=== PATIENT | female | born 1950 | race Caucasian/White ===

== ENCOUNTER 2016-10-10 05:39 | Inpatient (IN) | payer OTHER ==
[2016-10-10] VITALS (7 sets, daily range): BP systolic 129–178; BP diastolic 66–88
[~2016-10-10] VITALS: Ht 165.1 cm; Wt 68.7 kg
[~2016-10-10 05:39] MED LIST: Actonel PO; Buspar PO; CHANTIX1 MG PO; ENDOCET 5-3251 EACH PO; ESGIC 50-325-41 EACH PO; FIORICET,ESG1 TABLET PO; FISH OIL 1,0001 EAC7 PO; IRON325 M1 PO; Motrin PO; NORCO 7.5/321 TABLET PO; OCUVITE TABLET1 EACH PO; VITAMIN D31000 UNI2 PO
[2016-10-11 04:00] VITALS: BP 142/74
[2016-10-11 07:09] LABS: HEMATOCRIT 38.2 % (36.0-46.0); MCV 92.9 FL (83-99)
[2016-10-11 08:00] VITALS: BP 172/95
[2016-10-11 12:00] VITALS: BP 189/77
[2016-10-11 15:46] VITALS: BP 183/77
[2016-10-11 20:10] VITALS: BP 184/85
[2016-10-12] VITALS (8 sets, daily range): BP systolic 123–157; BP diastolic 59–72
[2016-10-12 07:49] LABS: HEMATOCRIT 35.1 % (36.0-46.0); MCV 90.9 FL (83-99)
[2016-10-12] MEDS ORDERED: ELIQUIS2.5 MG PO (09:11)
[2016-10-12] MEDS ORDERED: OXYCODONE HCL5 MG PO (09:11)
[2016-10-12] MEDS ORDERED: SENNA PLUS TAB1 EACH PO (09:11)
[2016-10-12] MEDS ORDERED: CELECOXIB200 MG PO (09:11)
[2016-10-12] MEDS ORDERED: HYDROCODON-ACE1 EAC7 PO (10:11)
[2016-10-13 04:44] VITALS: BP 134/67
[2016-10-13 07:58] VITALS: BP 136/66
[2016-10-13 12:18] VITALS: BP 137/68
== END 2016-10-13 14:27 | DRG 470 ==
LOC: 2SOUTH 05:39 → 3WEST 05:39 → 2SOUTH 09:10 → 3WEST 10:16 → 2SOUTH 14:55 → 3WEST 10-13 14:27
PROVIDERS: Orthopaedic Surgery
PROC: 0SRC0J9 Replacement of Right Knee Joint with Synthetic Substitute, Cemented, Open Approach (ICD-10-PCS; principal; 2016-10-10)
DX: M17.11 Unilateral primary osteoarthritis, right knee (principal); F41.9 Anxiety disorder, unspecified; G43.909 Migraine, unspecified, not intractable, without status migrainosus; Z87.891 Personal history of nicotine dependence; Z85.528 Personal history of other malignant neoplasm of kidney; Z90.5 Acquired absence of kidney; Z88.1 Allergy status to other antibiotic agents
CPT/HCPCS: 36415; 71010; 85014; 85018; 86900; 86901; C1713; J0131; J0690; J1170; J1885; J2250; J2795; J7050

== ENCOUNTER 2017-06-25 20:25 | Inpatient (IN) | payer OTHER ==
[~2017-06-25] VITALS: Ht 165.1 cm; Wt 67.4 kg
[~2017-06-25 20:25] MED LIST changes: +BENADRYL25 MG PO; +CELECOXIB200 MG PO; +COZAAR25 MG PO; +ELIQUIS2.5 MG PO; +HYDROCODON-ACE1 EAC7 PO; +LORTAB 5-325 M1 EACH PO; +OXYCODONE HCL5 MG PO; +SENNA PLUS TAB1 EACH PO; +STOOL SOFTENER100 M1 PO
[2017-06-26 07:49] VITALS: BP 138/67
[2017-06-26 13:00] VITALS: BP 153/82
[2017-06-26 18:45] VITALS: BP 127/62
[2017-06-26 20:10] VITALS: BP 152/71
[2017-06-26 23:55] VITALS: BP 165/73
[2017-06-27 04:39] VITALS: BP 157/70
[2017-06-27 05:32] LABS: HEMATOCRIT 36.4 % (36.0-46.0); MCV 92.9 FL (83-99)
[2017-06-27 05:58] LABS: CHLORIDE 100 MEQ/L (99-109); CREATININE 0.6 MG/DL (0.6-1.3); GFR ESTIMATE (CALCULATED) > 59 mL/min/; GLUCOSE 144 mg/dL (70-99); POTASSIUM 3.8 MEQ/L (3.7-5.4); SODIUM 135 MEQ/L (136-147); UREA NITROGEN (BUN) 10 mg/dL (9-23)
[2017-06-27 07:30] VITALS: BP 156/72
[2017-06-27] MEDS ORDERED: ELIQUIS2.5 MG PO (10:37)
[2017-06-27] MEDS ORDERED: OXYCODONE HCL5 MG PO (10:37)
[2017-06-27 12:02] VITALS: BP 151/68
[2017-06-27 15:30] VITALS: BP 183/76
[2017-06-27 20:10] VITALS: BP 163/76
[2017-06-28 00:22] VITALS: BP 149/74
[2017-06-28 04:00] VITALS: BP 119/58
[2017-06-28 05:57] LABS: HEMATOCRIT 38.2 % (36.0-46.0); HEMOGLOBIN 13.1 G/DL (11.9-15.5)
[2017-06-28 07:30] VITALS: BP 133/65
[2017-06-28 11:41] VITALS: BP 113/65
[2017-06-28 16:00] VITALS: BP 125/58
[2017-06-28 20:15] VITALS: BP 125/66
[2017-06-29 00:10] VITALS: BP 122/60
[2017-06-29 04:24] VITALS: BP 125/59
[2017-06-29 08:00] VITALS: BP 133/61
[2017-06-29 12:11] VITALS: BP 111/67
== END 2017-06-29 15:18 | DRG 470 ==
LOC: ENRESERV 20:25 → 2SOUTH 06-26 06:51 → 3WEST 06-26 06:51 → 2SOUTH 06-26 13:00 → 3WEST 06-29 15:18
PROVIDERS: Orthopaedic Surgery
PROC: 0SRD0J9 Replacement of Left Knee Joint with Synthetic Substitute, Cemented, Open Approach (ICD-10-PCS; principal; 2017-06-26)
DX: M17.12 Unilateral primary osteoarthritis, left knee (principal); G43.909 Migraine, unspecified, not intractable, without status migrainosus; M81.0 Age-related osteoporosis without current pathological fracture; F41.9 Anxiety disorder, unspecified; Z96.651 Presence of right artificial knee joint; Z85.528 Personal history of other malignant neoplasm of kidney; Z90.5 Acquired absence of kidney
CPT/HCPCS: 71045; 80048; 85014; 85018; 93971; C1713; J0131; J0690; J1100; J1885; J2250; J2405; J2795; J7050; S0020